=== PATIENT | female | born 1980 | race Caucasian/White ===

== ENCOUNTER 2018-03-07 15:11 | Emergency (ER) | payer SELFPAY ==
--- NOTE | 2018-03-07 15:28 | UC ---
General HPI - HPI Summary HPI Summary: This patient is a 38 year old F presenting to [facility] with a chief complaint of needing medication refill. Patient recently moved from [place], [place] and needs a refill on her prescription for Gabapentin (300mg TID) and Buproprion (150mg TID) . However, her PCP refuses to give her the medication because she was already prescribed three months supply and it is now running out. Patient is not complaining of any other symptoms. - History of Current Complaint Stated Complaint: MEDICATION REFILL Time Seen by Provider: 03/07/18 15:20 Hx Obtained From: Patient Onset/Duration: Lasting Weeks Pain Intensity: 0 Associated Signs & Symptoms: Positive: Other - Pt needs refill on gabapentin and bupropion. - Allergy/Home Medications Allergies/Adverse Reactions: Allergies Allergy/AdvReac Type Severity Reaction Status Date / Time No Known Allergies Allergy Verified 03/07/18 15:30 PMH/Surg Hx/FS Hx/Imm Hx Other Endocrine History: No DM Cardiovascular History: Other Other Cardiovascular History: No CAD HTN Psychological History: Other Other Psychological History: Patient has prior psych diagnoses. - Family History Known Family History: Positive: Hypertension - Mother - Social History Alcohol Use: None Substance Use Type: None Smoking Status (MU): Never Smoked Tobacco Review of Systems Constitutional: Other - Denies Fever Psychological: Other - Prior psychological diagnoses. Patient is in urgent care in need of refill of medication. All Other Systems Reviewed And Are Negative: Yes Physical Exam - Summary Physical Exam Summary: VITAL SIGNS: Reviewed. GENERAL: Patient is a well-developed and nourished FEMALE who is lying comfortable in the stretcher. Patient is not in any acute respiratory distress. HEAD AND FACE: Normocephalic EYES: PERRLA, EOMI x 2. EARS: Hearing grossly intact. MOUTH: Oropharynx within normal limits. NECK: Supple, trachea is midline, no adenopathy, no JVD, no carotid bruit. CHEST: Symmetric, no tenderness at palpation LUNGS: Clear to auscultation bilaterally. No wheezing or crackles. CVS: Regular rate and rhythm, S1 and S2 present, no murmurs or gallops appreciated. ABDOMEN: Soft, non-tender. Bowel sounds are normal. No abdominal abnormal pulsations. EXTREMITIES: Full ROM in all major joints, no edema, no cyanosis or clubbing. NEURO: Alert and oriented x 3. No acute neurological deficits. Speech is normal and follows commands. SKIN: Dry and warm Triage Information Reviewed: Yes Vital Signs: Initial Vitals Temp Pulse Resp BP Pulse Ox 98.5 F 89 20 150/79 99 03/07/18 15:31 03/07/18 15:31 03/07/18 15:31 03/07/18 15:31 03/07/18 15:31 Vital Signs Reviewed: Yes Course/Dx - Differential Dx - Multi-Symptom Provider Diagnoses: Medication Refill Discharge - Sign-Out/Discharge Documenting (check all that apply): Patient Departure - discharged - Discharge Plan Condition: Stable Disposition: HOME Prescriptions: Bupropion XL* [Wellbutrin XL *] 150 mg PO TID #21 tab Gabapentin 300 mg PO BID #14 capsule Patient Education Materials: Medicine Refill (ED) [place] [facility] [place] [facility] [place]] Additional Instructions: RETURN TO URGENT CARE FOR ANY WORSENING OR NEW SYMPTOMS. - Attestation Statements Document Initiated by Scribe: Yes Documenting Scribe: Rodney Kiran Provider For Whom Scribe is Documenting (Include Credential): Jose Hackett MD Scribe Attestation: Rodney Maravilla, scribed for Jose Hackett MD on 03/07/18 at 1540.
[2018-03-07 15:36] VITALS: BP 150/79
--- NOTE | 2018-03-08 13:11 | UC ---
- Progress Note Progress Note: NO IMAGING ORDERED. NO CHANGE IN MGMT - NADEEM KENT MD Discharge - Sign-Out/Discharge Documenting (check all that apply): Patient Departure All imaging exams completed and their final reports reviewed: No Studies - Discharge Plan Condition: Stable Disposition: HOME Prescriptions: Bupropion XL* [Wellbutrin XL *] 150 mg PO TID #21 tab Gabapentin 300 mg PO BID #14 capsule Patient Education Materials: Medicine Refill (ED) Referrals: [facility] [place] [facility] [Outside] Additional Instructions: RETURN TO URGENT CARE FOR ANY WORSENING OR NEW SYMPTOMS. - Billing Disposition and Condition Condition: STABLE Disposition: Home
== END 2018-03-07 15:45 | disposition home or self-care (01) ==
LOC: UCEAST 15:11
DX: F99 Mental disorder, not otherwise specified (principal); Z76.0 Encounter for issue of repeat prescription
CPT/HCPCS: 99202; G0463

== ENCOUNTER 2019-02-26 19:40 | Emergency (ER) | payer OTHER ==
[2019-02-26 19:56] VITALS: BP 161/86
[2019-02-26] MEDS ORDERED: Albuterol 2.5 MG/3 ML NEB.SOL* (0.083%) INH ONE (19:58)
--- NOTE | 2019-02-26 20:35 | UC ---
Respiratory Complaint HPI - HPI Summary HPI Summary: 39-year-old woman comes in with a chief complaint of cough chest congestion wheezing and shortness of breath. She's had an upper respiratory tract infection symptoms for the last couple of days however the last 24 hours she's got a lot more short of breath and had wheezing. Patient reports she's had this happened to her several times in the past. She usually gets treated with albuterol and a steroid and that improved her condition. She does not use an albuterol inhaler otherwise on a regular basis. Her daughters been sick the patient's been bringing up green sputum. Chest feels tight. No pedal edema no calf pain. She reports in the past she's been much more short of breath or numbness when these episodes occur. Activity does increased shortness of breath. - History of Current Complaint Chief Complaint: UCRespiratory Stated Complaint: COUGH Time Seen by Provider: 02/26/19 20:07 Hx Last Menstrual Period: today Pain Intensity: 3 - Allergies/Home Medications Allergies/Adverse Reactions: Allergies Allergy/AdvReac Type Severity Reaction Status Date / Time No Known Allergies Allergy Verified 02/26/19 19:56 Home Medications: Home Medications Dextroamphetamine/Amphetamine [Adderall 20 mg Tablet] 2 tab PO DAILY 02/26/19 [ History Confirmed 02/26/19] PMH/Surg Hx/FS Hx/Imm Hx Previously Healthy: Yes Respiratory History: Asthma - Surgical History Surgical History: None - Family History Known Family History: Positive: Hypertension - Mother - Social History Alcohol Use: None Substance Use Type: None Smoking Status (MU): Never Smoked Tobacco Review of Systems All Other Systems Reviewed And Are Negative: Yes Constitutional: Positive: Fever, Chills Skin: Positive: Negative Eyes: Positive: Negative ENT: Positive: Sore Throat, Nasal Discharge Respiratory: Positive: Shortness Of Breath, Cough, Other - SEE HPI Cardiovascular: Positive: Chest Pain - SEE HPI Gastrointestinal: Positive: Negative Motor: Positive: Negative Neurovascular: Positive: Negative Musculoskeletal: Positive: Negative Neurological: Positive: Negative Psychological: Positive: Negative Is Patient Immunocompromised?: No Physical Exam Triage Information Reviewed: Yes Appearance: No Pain Distress, Well-Nourished, Ill-Appearing - MILD, Other: - Mildly short of breath Vital Signs: Initial Vital Signs Temp 101 F 02/26/19 19:49 Pulse 116 02/26/19 19:49 Resp 20 02/26/19 19:49 BP 161/86 02/26/19 19:49 Pulse Ox 96 02/26/19 19:49 Vital Signs Reviewed: Yes Eye Exam: Normal Eyes: Positive: Conjunctiva Clear ENT: Positive: Pharyngeal erythema, Nasal congestion, Nasal drainage, TMs normal Neck: Positive: Supple Respiratory: Positive: Respiratory distress - MILD, Wheezing Cardiovascular: Positive: Tachycardia Musculoskeletal: Positive: Strength Intact, ROM Intact, No Edema - NO CALF TENDERNESS Neurological: Positive: Alert Psychological: Positive: Normal Response To Family, Age Appropriate Behavior Skin Exam: Normal Respiratory Course/Dx - Course Course Of Treatment: Patient received an albuterol nebulizer in clinic. She did have some improvement with this. She is bringing up some green sputum. We discussed getting a chest x-ray. At this time the patient prefers to not get a chest x- ray. Patient reports that she's been treated in the past with steroids and albuterol inhaler that's helped. This time with the fever and green sputum were also going to treat with doxycycline. We discussed if she did not improve she get worse she needs to go the emergency department. - Differential Dx/Diagnosis Provider Diagnosis: Bronchitis with bronchospasm Discharge ED - Sign-Out/Discharge Documenting (check all that apply): Patient Departure All imaging exams completed and their final reports reviewed: No Studies - Discharge Plan Condition: Stable Disposition: HOME Prescriptions: DOXYcycline CAP(*) [DOXYcycline 100MG CAP(*)] 100 mg PO BID #19 cap predniSONE TAB* [Deltasone 20 MG TAB*] 40 mg PO DAILY #8 tab Patient Education Materials: Acute Bronchitis (ED), Bronchospasm (ED) Referrals: [facility] [place] [facility] [Outside] Additional Instructions: FOLLOW UP WITH YOUR DOCTOR IF NOT COMPLETELY IMPROVED. GO TO THE EMERGENCY DEPARTMENT IF YOUR CONDITION DOES NOT IMPROVE OR WORSENS OR ANY QUESTIONS OR CONCERNS. - Billing Disposition and Condition Condition: STABLE Disposition: Home
[2019-02-26] MEDS ORDERED: Albuterol HFA INHALER* 8 gm MDI INH ONE (20:36)
[2019-02-26] MEDS ORDERED: predniSONE TAB* 20 MG PO ONE (20:36)
[2019-02-26] MEDS ORDERED: DOXYcycline CAP(*) 100 MG PO ONE (20:37)
[2019-02-26] MEDS ORDERED: Acetaminophen TAB* 325 MG PO ONE (20:38)
== END 2019-02-26 21:09 | disposition home or self-care (01) ==
LOC: UCEAST 19:40
DX: J20.9 Acute bronchitis, unspecified (principal)
CPT/HCPCS: 99213; A9270-GY; G0463; J7512